=== PATIENT | female | born 1995 | race Caucasian/White ===

== ENCOUNTER 2018-07-22 01:14 | Emergency (ER) | payer OTHER ==
[~2018-07-22] VITALS: Ht 160 cm; Wt 52.5 kg
[2018-07-22] MEDS ORDERED: DEXAMETHASONE 4 MG TABLET PO STA (01:30)
[2018-07-22] MEDS ORDERED: DEXAMETHASONE 4 MG TABLET ONE (01:35)
[2018-07-22 02:16] VITALS: BP 114/73
== END 2018-07-22 02:27 | disposition home or self-care (01) ==
LOC: ED 02:21
DX: J02.8 Acute pharyngitis due to other specified organisms (principal); J00 Acute nasopharyngitis [common cold]; B34.9 Viral infection, unspecified
CPT/HCPCS: 87081; 87880; 99283

== ENCOUNTER 2018-08-11 21:09 | Emergency (ER) | payer OTHER ==
[2018-08-11 22:15] LABS: MICROSCOPIC NOT IND
[2018-08-11 22:28] LABS: CULTURE INDICATED? NO
[2018-08-11 22:57] VITALS: BP 99/58
== END 2018-08-11 22:59 | disposition home or self-care (01) ==
LOC: ED 21:37
DX: R55 Syncope and collapse (principal)
CPT/HCPCS: 81003; 81025; 93005; 99284

== ENCOUNTER 2020-10-20 00:39 | Emergency (ER) | payer OTHER ==
[~2020-10-20] VITALS: Ht 160 cm; Wt 52.0 kg
--- NOTE | 2020-10-20 01:15 | NUR ---
pt to room, c/o pain to head. MD to bedside to eval pt. orders received. piv started to right hand x1 20g, and blood drawn and sent to lab. piv secured, flushed, no redness,swelling and flushes easily. secured with tape. pt anxious and crying and says she hates needles and can still feel it inside her. needle is gone, and only plastic catheter remains.
[2020-10-20] MEDS ORDERED: KETOROLAC 30 MG/1 ML ONE (01:22)
[2020-10-20] MEDS ORDERED: ONDANSETRON 2MG/ML, 2ML ONE (01:23)
[2020-10-20] MEDS ORDERED: ONDANSETRON 2MG/ML, 2ML IVPush ONE (01:30)
[2020-10-20] MEDS ORDERED: KETOROLAC 30 MG/1 ML IVPush ONE (01:30)
[2020-10-20 01:31] LABS: ALANINE AMINOTRANSFERASE 21 U/L (12-78); ALBUMIN 4.2 g/dL (3.4-5.0); ANION GAP 13 mmol/L (5-15); BASOPHILS % (AUTO) 0 % (0-1); CALCIUM 8.6 mg/dL (8.5-10.1); CHLORIDE 114 mmol/L (98-107); CREATININE 0.56 mg/dL (0.55-1.02); EOSINOPHILS % (AUTO) 2 % (1-7); LYMPHOCYTES % (AUTO) 46 % (22-44); MEAN CORPUSCULAR HEMOGLOBIN 32.3 pg (27.0-34.8); MEAN CORPUSCULAR HGB CONC 35.3 g/dL (32.4-35.8); MEAN PLATELET VOLUME 8.4 fL (7.4-10.4); MONOCYTES % (AUTO) 6 % (2-9); NEUTROPHILS % (AUTO) 45 % (42-75); PLATELET COUNT 200 x10^3/uL (130-400); RED BLOOD COUNT 4.61 x10^6/uL (3.82-5.3); RED CELL DISTRIBUTION WIDTH 12.7 % (9.6-15.2)
[2020-10-20 01:33] LABS: MD NO
--- NOTE | 2020-10-20 01:39 | NUR ---
Pt demanding that the IV gets taken out. Pt states she is hyperventilating because of the IV and needs it out. Discussed with patient, the plan to medicated and treat her CHASE and Nausea with IV medications. Pt states she feels better and refusing IV medications. IV dc'd intact per patient request. Physician notified. Warm blanket given. Will monitor.
[2020-10-20 01:42] LABS: ALKALINE PHOSPHATASE 63 U/L (45-117); BILIRUBIN,TOTAL 0.2 mg/dL (0.2-1.0); TOTAL PROTEIN 7.2 g/dL (6.4-8.2); TROPONIN I < 0.015 ng/mL (0.000-0.045)
[2020-10-20 01:55] LABS: FREE T4 (FREE THYROXINE) 1.09 ng/dL (0.76-1.46)
--- NOTE | 2020-10-20 02:03 | NUR ---
Pt ambulated to BR without difficutly. Back to bed. Urine provided and sent to lab.
[2020-10-20] MEDS ORDERED: POTASSIUM CHLORIDE 20 MEQ TAB.ER.PRT ONE (02:12)
[2020-10-20 02:25] LABS: MICROSCOPIC NOT IND
[2020-10-20] MEDS ORDERED: POTASSIUM CHLORIDE 20 MEQ TAB.ER.PRT PO ONE (02:30)
[2020-10-20 02:55] VITALS: BP 112/61
--- NOTE | 2020-10-20 02:57 | NUR ---
Step by step detailed DC instructions gone over with patient. Pt states understanding. Pt instructed to f/u with clinic and cardiology. Pt with stable VS. Pt A&O. Pt in no acute disress. Pt denies pain at this time. Pt stable on feet and ambulatory out of ED with family. Pt instructed not to drive.
== END 2020-10-20 03:02 | disposition home or self-care (01) ==
LOC: ED 01:15
DX: R55 Syncope and collapse (principal); E87.6 Hypokalemia; R53.1 Weakness; R94.31 Abnormal electrocardiogram [ECG] [EKG]
CPT/HCPCS: 36415; 80053; 81003; 84439; 84443; 84484; 84703; 85025; 93005; 99284